=== PATIENT | male | born 1975 | race Caucasian/White ===

== ENCOUNTER 2016-12-28 19:30 | Emergency (ER) | payer OTHER ==
[~2016-12-28] VITALS: Ht 172.7 cm; Wt 71.2 kg
[~2016-12-28 19:30] MED LIST: ADALAT CC90 MG PO; ALPRAZOLAM0.25 MG PO; AMBIEN10 M1 GT; ANTACID325 MG PO; ASPIR-MOX 325325 MG PO; BACTRIM,SEPT1 TABLET PO; BUPROPION HCL75 MG PO; BUSPAR5 MG PO; CATAPRES0.3 MG PO; CELEXA40 MG PO; CEPHALEXIN500 MG PO; CLEOCIN300 MG PO; CLINDAMYCIN HC300 MG PO; CLONAZEPAM1 MG PO; CONCERTA36 MG PO; DELTASONE20 MG PO; FERROUS SULFAT324 M1 PO; FLOMAX0.4 M1 PO; KEFLEX500 MG PO; KLONOPIN1 MG PO; LASIX20 MG GT; METHADONE H5 MG/5 ML PO; METHADONE10 MG PO; MOTRIN600 MG PO; MYFORTIC180 MG PO; NICOTINE PATCH1 EAC1 TD; NOHOMEMEDS; NORCO 5/3251 TABLET PO; NORVASC5 MG PO; OXYCODONE HCL5 MG PO; PLAVIX75 MG PO; PROGRAF1 MG PO; PROTONIX40 M1 PO; PROTONIX40 MG PO; REGLAN10 M1 PO; THERAGRAN1 TABLET PO; TRANDATE300 MG PO; VALCYTE450 MG PO; WELLBUTRIN75 MG PO; XARELTO15 MG PO; XARELTO20 MG PO
[2016-12-28] MEDS ORDERED: NARCAN4 MG NS (21:42)
[2016-12-28 21:58] VITALS: BP 120/88
== END 2016-12-28 22:00 | disposition left against medical advice (07) ==
LOC: EME → EDBD 19:30 → EME 22:00
DX: T40.1X1A Poisoning by heroin, accidental (unintentional), initial encounter (principal); F11.10 Opioid abuse, uncomplicated; F17.200 Nicotine dependence, unspecified, uncomplicated
CPT/HCPCS: 71010; 99281; 99284

== ENCOUNTER 2017-06-19 17:14 | Emergency (ER) | payer OTHER ==
[~2017-06-19] VITALS: Ht 172.7 cm; Wt 67.7 kg
[~2017-06-19 17:14] MED LIST changes: +NARCAN4 MG NS
[2017-06-19] MEDS ORDERED: TAMIFLU75 MG PO (18:48)
[2017-06-19] MEDS ORDERED: LIBRIUM25 MG PO ×2 (18:48→18:49)
[2017-06-19 19:18] VITALS: BP 105/79
== END 2017-06-19 19:19 | disposition home or self-care (01) ==
LOC: EME 17:14
DX: J02.9 Acute pharyngitis, unspecified (principal); F10.10 Alcohol abuse, uncomplicated; F32.9 Major depressive disorder, single episode, unspecified; F41.9 Anxiety disorder, unspecified; F17.210 Nicotine dependence, cigarettes, uncomplicated; F19.11 Other psychoactive substance abuse, in remission
CPT/HCPCS: 99281; 99283

== ENCOUNTER 2017-06-21 19:00 | Inpatient (IN) | payer OTHER ==
[~2017-06-21] VITALS: Ht 177.8 cm; Wt 65.1 kg
[~2017-06-21 19:00] MED LIST changes: +LIBRIUM25 MG PO; +TAMIFLU75 MG PO
[2017-06-21 19:15] LABS: BASE EXCESS -6.1 mEq/L (-3 to +3); BICARBONATE 17.3 mEq/L (22-26); CARBOXY HGB 4.4 % (0-5); COMMENTS - BLOOD GASES C+; DEVICE VENT; FI02 100 %; MECHANICAL RATE 16 resp/min; METHEMOGLOBIN 1.1 % (0-1.5); MODE A/C; PCO2 28 mm Hg (35-45); PEEP 5 CM/H20; PO2 544 mm Hg (80-100); SITE RR; TIDAL VOLUME 500 ML; TOTAL RESP RATE 27 resp/min
[2017-06-21 19:25] LABS: CREATININE 0.9 mg/dL (0.6-1.3); POTASSIUM 3.6 mEq/L (3.7-5.4)
[2017-06-21 19:26] LABS: EOSINOPHIL (%) 1.6 % (0-5); EOSINOPHIL COUNT 0.1 K/uL (0-0.3); HEMATOCRIT 38.6 % (38.0-50.0); IMMATURE GRANULOCYTE (%) 2.6 % (0.0-0.7); IMMATURE GRANULOCYTE COUNT 0.2 K/uL; INSTRUMENT ABS NEUTROPHIL CT 3.2 K/uL; LYMPHOCYTE COUNT 2.2 K/uL (1.0-2.8); MCH 32.8 PG (29.0-34.0); MCHC 34.7 G/DL (30.0-36.0); MCV 94.4 FL (86-99); MEAN PLAT.VOLUME 11.7 uM^3 (9.0-12.4); MONOCYTE (%) 7.5 % (3-12); MONOCYTE COUNT 0.5 K/uL (0-0.8); NEUTROPHIL (%) 51.5 % (45-76); NEUTROPHIL COUNT 3.2 K/uL (1.8-6.4); PLATELET COUNT 134 K/uL (156-360); RBC DIS.WIDTH-CV 13.8 % (11.8-14.6); RBC DIS.WIDTH-SD 48.1 % (39-53); RED BLOOD COUNT 4.09 M/uL (4.00-5.50); WHITE BLOOD COUNT 6.2 K/uL (4.1-10.2)
[2017-06-21 19:32] LABS: PROTHROMBIN TIME 11.3 SEC (10.2-12.9)
[2017-06-21 19:35] LABS: PTT 26.6 SEC (25-37)
[2017-06-21 19:38] LABS: CHLORIDE 106 mEq/L (99-109); POTASSIUM 3.5 mEq/L (3.7-5.4); SODIUM 140 mEq/L (136-147)
[2017-06-21 19:40] LABS: GLUCOSE 190 mg/dL (70-99)
[2017-06-21 19:41] LABS: ANION GAP 18 MEQ/L (2-14)
[2017-06-21 19:42] LABS: ADD MIUA? YES; BILIRUBIN NEGATIVE; BLOOD SMALL; COLOR STRAW ((YELLOW)); GLUCOSE (STRIP) 150; KETONES NEGATIVE; LEUKOCYTES NEGATIVE; NITRITE NEGATIVE; PROTEIN (STRIP) 100; SPECIFIC GRAVITY 1.005 (1.000-1.030); UROBILINOGEN 0.2 MG/DL (0.2-1.0)
[2017-06-21 19:42] LABS: TOTAL BILIRUBIN 0.5 mg/dL (0.0-1.0)
[2017-06-21 19:43] LABS: SERUM ETHYL ALCOHOL 130 mg/dL
[2017-06-21 19:44] LABS: GFR ESTIMATE (CALCULATED) > 59 mL/min/ (58.99-99999)
[2017-06-21 19:45] LABS: ALKALINE PHOSPHATASE 134 IU/L (3-129)
[2017-06-21 19:46] LABS: UREA NITROGEN (BUN) 11 mg/dL (9-23)
[2017-06-21 19:47] LABS: SALICYLATE < 5.0 MG/DL (15-30)
[2017-06-21 19:48] LABS: BACTERIA NONE SEEN /HPF; EPITHELIAL CELLS NONE SEEN /HPF; GRANULAR CASTS 0-5 /LPF; MUCUS TRACE /LPF; RED BLOOD CELLS 0-5 /HPF (0-5); UCUL ADDED? NO; WHITE BLOOD CELLS 0-5 /HPF (0-5)
[2017-06-21 19:49] LABS: LIPASE 85 U/L (1.0-51.0)
[2017-06-21 19:51] LABS: TROP-I INTERPRETATION NEGATIVE; TROPONIN-I < 0.01 ng/mL (0.0-0.30)
[2017-06-21 22:45] VITALS: BP 180/120
[2017-06-21 22:55] VITALS: BP 190/113
[2017-06-21 23:00] VITALS: BP 184/116
[2017-06-21 23:09] LABS: ADD MEDTOX COMMENT Y; AMPHETAMINE NEGATIVE (500 ng/mL); BARBITURATES NEGATIVE (200 ng/mL); BENZODIAZEPINES PRESUMPTIVE POSITIVE (150 ng/mL); COCAINE NEGATIVE (150 ng/mL); INTERNAL CONTROLS VALID? YES; METHADONE NEGATIVE (200 ng/mL); METHAMPHETAMINE NEGATIVE (500 ng/mL); OPIATES (MORPHINE) PRESUMPTIVE POSITIVE (100 ng/mL); OXYCODONE NEGATIVE (100 ng/mL); PHENCYCLIDINE NEGATIVE (25 ng/mL); PROPOXYPHENE NEGATIVE (300 ng/mL); THC CANNABINOIDS NEGATIVE (50 ng/mL); TRICYCLIC ANTIDEPRESSANTS NEGATIVE (300 ng/mL)
[2017-06-21 23:17] LABS: BICARBONATE 18.6 mEq/L (22-26); CARBOXY HGB 2.5 % (0-5); METHEMOGLOBIN 1.5 % (0-1.5); PCO2 37 mm Hg (35-45); PO2 156 mm Hg (80-100); SITE LR; pH 7.31 (7.35-7.45)
[2017-06-21 23:19] LABS: DEVICE 980; FI02 50 %; MECHANICAL RATE 16 resp/min; MODE AC; PEEP 5 CM/H20; TIDAL VOLUME 500 ML; TOTAL RESP RATE 16 resp/min
[2017-06-22] VITALS (26 sets, daily range): BP systolic 0–206; BP diastolic 0–122
[2017-06-22 00:16] LABS: BENZODIAZEPINES, URINE SCREEN POSITIVE (200 ng/mL)
[2017-06-22 00:29] LABS: METH RESISTANT S AUREUS PCR NEGATIVE (NEGATIVE)
[2017-06-22 00:30] LABS: PROBE CHECK PASS; SPECIMEN PROCESSING CONTROL PASS
[2017-06-22 00:39] LABS: POINT-OF-CARE METER ID UU14314082
[2017-06-22 01:27] LABS: EOSINOPHIL (%) 0.1 % (0-5); HEMATOCRIT 42.6 % (38.0-50.0); IMMATURE GRANULOCYTE (%) 0.5 % (0.0-0.7); INSTRUMENT ABS NEUTROPHIL CT 6.6 K/uL; LYMPHOCYTE COUNT 0.5 K/uL (1.0-2.8); MEAN PLAT.VOLUME 11.7 uM^3 (9.0-12.4); MONOCYTE (%) 5.7 % (3-12); MONOCYTE COUNT 0.4 K/uL (0-0.8); NEUTROPHIL (%) 87.1 % (45-76); NEUTROPHIL COUNT 6.6 K/uL (1.8-6.4); PLATELET COUNT 122 K/uL (156-360); RBC DIS.WIDTH-CV 13.8 % (11.8-14.6); RBC DIS.WIDTH-SD 47.8 % (39-53); RED BLOOD COUNT 4.53 M/uL (4.00-5.50); WHITE BLOOD COUNT 7.6 K/uL (4.1-10.2)
[2017-06-22 01:39] LABS: PROTHROMBIN TIME 11.5 SEC (10.2-12.9)
[2017-06-22 01:42] LABS: CHLORIDE 110 mEq/L (99-109); POTASSIUM 3.1 mEq/L (3.7-5.4); SODIUM 142 mEq/L (136-147)
[2017-06-22 01:43] LABS: MAGNESIUM 1.3 mg/dL (1.3-2.7)
[2017-06-22 01:44] LABS: GLUCOSE 172 mg/dL (70-99)
[2017-06-22 01:46] LABS: ANION GAP 16 MEQ/L (2-14)
[2017-06-22 01:48] LABS: GFR ESTIMATE (CALCULATED) > 59 mL/min/ (58.99-99999); TROP-I INTERPRETATION NEGATIVE; TROPONIN-I 0.02 ng/mL (0.0-0.30)
[2017-06-22 01:49] LABS: UREA NITROGEN (BUN) 9 mg/dL (9-23)
[2017-06-22 04:59] LABS: POINT-OF-CARE METER ID UU14174217
[2017-06-22 05:27] LABS: EOSINOPHIL (%) 0 % (0-5); HEMATOCRIT 43.3 % (38.0-50.0); IMMATURE GRANULOCYTE (%) 0.1 % (0.0-0.7); INSTRUMENT ABS NEUTROPHIL CT 7.3 K/uL; LYMPHOCYTE COUNT 0.4 K/uL (1.0-2.8); MCH 31.7 PG (29.0-34.0); MCHC 33.9 G/DL (30.0-36.0); MCV 93.5 FL (86-99); MEAN PLAT.VOLUME 11.6 uM^3 (9.0-12.4); MONOCYTE (%) 5.1 % (3-12); MONOCYTE COUNT 0.4 K/uL (0-0.8); NEUTROPHIL (%) 89.8 % (45-76); NEUTROPHIL COUNT 7.3 K/uL (1.8-6.4); PLATELET COUNT 130 K/uL (156-360); RBC DIS.WIDTH-CV 13.9 % (11.8-14.6); RBC DIS.WIDTH-SD 47.8 % (39-53); RED BLOOD COUNT 4.63 M/uL (4.00-5.50); WHITE BLOOD COUNT 8.2 K/uL (4.1-10.2)
[2017-06-22 05:38] LABS: PROTHROMBIN TIME 11.3 SEC (10.2-12.9)
[2017-06-22 05:50] LABS: TROP-I INTERPRETATION NEGATIVE; TROPONIN-I < 0.01 ng/mL (0.0-0.30)
[2017-06-22 06:07] LABS: ANION GAP 13 MEQ/L (2-14); CHLORIDE 106 MEQ/L (99-109); GFR ESTIMATE (CALCULATED) > 59 mL/min/ (58.99-99999); GLUCOSE 152 mg/dL (70-99); MAGNESIUM 1.4 mg/dl (1.3-2.7); POTASSIUM 3.2 MEQ/L (3.7-5.4); SAMPLE HEMOLYSIS CHECK 0; SAMPLE ICTERIC CHECK 0; SAMPLE LIPEMIA CHECK 0; SODIUM 140 MEQ/L (136-147); UREA NITROGEN (BUN) 9 mg/dL (9-23)
[2017-06-22 07:54] LABS: POINT-OF-CARE METER ID UU13113747
[2017-06-22 09:37] LABS: BASE EXCESS -2.9 mEq/L (-3 to +3); BICARBONATE 22.6 mEq/L (22-26); CARBOXY HGB 2.1 % (0-5); COMMENTS - BLOOD GASES C+; METHEMOGLOBIN 1.2 % (0-1.5); PCO2 41 mm Hg (35-45); PO2 134 mm Hg (80-100); SITE A LINE; pH 7.35 (7.35-7.45)
[2017-06-22 09:38] LABS: DEVICE VENTILATOR; FI02 0.35 %; MECHANICAL RATE 16 resp/min; MODE AC; PEEP 5 CM/H20; TIDAL VOLUME 500 ML; TOTAL RESP RATE 21 resp/min
[2017-06-22 12:35] LABS: EOSINOPHIL (%) 0 % (0-5); HEMATOCRIT 40.5 % (38.0-50.0); IMMATURE GRANULOCYTE (%) 0.8 % (0.0-0.7); IMMATURE GRANULOCYTE COUNT 0.1 K/uL; INSTRUMENT ABS NEUTROPHIL CT 7.6 K/uL; LYMPHOCYTE COUNT 0.4 K/uL (1.0-2.8); MCH 32.3 PG (29.0-34.0); MCHC 34.3 G/DL (30.0-36.0); MCV 94.2 FL (86-99); MEAN PLAT.VOLUME 12.1 uM^3 (9.0-12.4); MONOCYTE (%) 4.3 % (3-12); MONOCYTE COUNT 0.4 K/uL (0-0.8); NEUTROPHIL (%) 89.9 % (45-76); NEUTROPHIL COUNT 7.6 K/uL (1.8-6.4); PLATELET COUNT 116 K/uL (156-360); WHITE BLOOD COUNT 8.4 K/uL (4.1-10.2)
[2017-06-22 12:40] LABS: PROTHROMBIN TIME 11.4 SEC (10.2-12.9)
[2017-06-22 13:01] LABS: ANION GAP 10 MEQ/L (2-14); CHLORIDE 107 MEQ/L (99-109); POTASSIUM 3.1 MEQ/L (3.7-5.4); SAMPLE HEMOLYSIS CHECK 0; SAMPLE ICTERIC CHECK 0; SAMPLE LIPEMIA CHECK 0; SODIUM 139 MEQ/L (136-147)
[2017-06-22 13:06] LABS: GFR ESTIMATE (CALCULATED) > 59 mL/min/ (58.99-99999); UREA NITROGEN (BUN) 9 mg/dL (9-23)
[2017-06-22 13:10] LABS: TROP-I INTERPRETATION NEGATIVE; TROPONIN-I < 0.01 ng/mL (0.0-0.30)
[2017-06-22 13:11] LABS: GLUCOSE 113 mg/dL (70-99)
[2017-06-22 16:01] LABS: BASE EXCESS -3.5 mEq/L (-3 to +3); BICARBONATE 22.1 mEq/L (22-26); METHEMOGLOBIN 1.4 % (0-1.5); PCO2 41 mm Hg (35-45); pH 7.34 (7.35-7.45)
[2017-06-22 16:02] LABS: COMMENTS - BLOOD GASES C+; DEVICE VENTILATOR; FI02 35 %; MECHANICAL RATE 16 resp/min; MODE AC; PEEP 5 CM/H20; PO2 166 mm Hg (80-100); SITE A LINE; TIDAL VOLUME 500 ML; TOTAL RESP RATE 16 resp/min
[2017-06-22 17:57] LABS: EOSINOPHIL (%) 0.1 % (0-5); HEMATOCRIT 38.8 % (38.0-50.0); IMMATURE GRANULOCYTE (%) 0.5 % (0.0-0.7); INSTRUMENT ABS NEUTROPHIL CT 7.7 K/uL; LYMPHOCYTE COUNT 0.5 K/uL (1.0-2.8); MCH 31.6 PG (29.0-34.0); MCHC 33.8 G/DL (30.0-36.0); MCV 93.5 FL (86-99); MEAN PLAT.VOLUME 11.6 uM^3 (9.0-12.4); MONOCYTE (%) 4.3 % (3-12); MONOCYTE COUNT 0.4 K/uL (0-0.8); NEUTROPHIL (%) 89.4 % (45-76); NEUTROPHIL COUNT 7.7 K/uL (1.8-6.4); PLATELET COUNT 140 K/uL (156-360); RBC DIS.WIDTH-SD 48.2 % (39-53); RED BLOOD COUNT 4.15 M/uL (4.00-5.50); WHITE BLOOD COUNT 8.6 K/uL (4.1-10.2)
[2017-06-22 18:03] LABS: PROTHROMBIN TIME 11.7 SEC (10.2-12.9)
[2017-06-22 18:18] LABS: TROP-I INTERPRETATION NEGATIVE; TROPONIN-I < 0.01 ng/mL (0.0-0.30)
[2017-06-22 18:34] LABS: POINT-OF-CARE METER ID UU13113803
[2017-06-22 19:23] LABS: ALKALINE PHOSPHATASE 97 IU/L (3-129); ANION GAP 10 MEQ/L (2-14); CHLORIDE 109 MEQ/L (99-109); DIRECT BILIRUBIN 0.2 mg/dL (0.0-0.3); GFR ESTIMATE (CALCULATED) > 59 mL/min/ (58.99-99999); GLUCOSE 107 mg/dL (70-99); POTASSIUM 3.3 MEQ/L (3.7-5.4); SAMPLE HEMOLYSIS CHECK 0; SAMPLE ICTERIC CHECK 0; SAMPLE LIPEMIA CHECK 0; SODIUM 140 MEQ/L (136-147); TOTAL BILIRUBIN 0.7 MG/DL (0.0-1.0); UREA NITROGEN (BUN) 7 mg/dL (9-23)
[2017-06-22 19:32] LABS: MAGNESIUM 1.7 mg/dl (1.3-2.7)
[2017-06-22 21:56] LABS: BASE EXCESS -3.3 mEq/L (-3 to +3); BICARBONATE 21.3 mEq/L (22-26); METHEMOGLOBIN 2.2 % (0-1.5); PCO2 36 mm Hg (35-45); PO2 148 mm Hg (80-100); SITE A-LINE; pH 7.38 (7.35-7.45)
[2017-06-22 21:57] LABS: COMMENTS - BLOOD GASES C+; DEVICE 980; FI02 35 %; MECHANICAL RATE 16 resp/min; MODE AC; PEEP 5 CM/H20; TIDAL VOLUME 500 ML; TOTAL RESP RATE 18 resp/min
[2017-06-23] VITALS (19 sets, daily range): BP systolic 97–129; BP diastolic 61–83
[2017-06-23 00:32] LABS: EOSINOPHIL (%) 0.1 % (0-5); HEMATOCRIT 38.3 % (38.0-50.0); IMMATURE GRANULOCYTE (%) 0.3 % (0.0-0.7); LYMPHOCYTE COUNT 0.4 K/uL (1.0-2.8); MCH 32.4 PG (29.0-34.0); MCHC 34.5 G/DL (30.0-36.0); MCV 93.9 FL (86-99); MEAN PLAT.VOLUME 12.2 uM^3 (9.0-12.4); MONOCYTE (%) 4.1 % (3-12); MONOCYTE COUNT 0.4 K/uL (0-0.8); NEUTROPHIL (%) 91.6 % (45-76); PLATELET COUNT 109 K/uL (156-360); RBC DIS.WIDTH-SD 47.6 % (39-53); RED BLOOD COUNT 4.08 M/uL (4.00-5.50); WHITE BLOOD COUNT 9.9 K/uL (4.1-10.2)
[2017-06-23 00:32] LABS: POINT-OF-CARE METER ID UU13113803
[2017-06-23 00:38] LABS: PROTHROMBIN TIME 11.8 SEC (10.2-12.9)
[2017-06-23 00:50] LABS: CHLORIDE 109 mEq/L (99-109); SODIUM 138 mEq/L (136-147)
[2017-06-23 00:52] LABS: GLUCOSE 119 mg/dL (70-99)
[2017-06-23 00:53] LABS: ANION GAP 11 MEQ/L (2-14)
[2017-06-23 00:56] LABS: GFR ESTIMATE (CALCULATED) > 59 mL/min/ (58.99-99999)
[2017-06-23 00:57] LABS: UREA NITROGEN (BUN) 6 mg/dL (9-23)
[2017-06-23 00:59] LABS: TROP-I INTERPRETATION NEGATIVE; TROPONIN-I < 0.01 ng/mL (0.0-0.30)
[2017-06-23 01:13] LABS: MAGNESIUM 1.6 mg/dL (1.3-2.7)
[2017-06-23 04:18] LABS: BASE EXCESS -2.4 mEq/L (-3 to +3); BICARBONATE 21.6 mEq/L (22-26); CARBOXY HGB 1.9 % (0-5); METHEMOGLOBIN 1.6 % (0-1.5); PCO2 34 mm Hg (35-45); PO2 139 mm Hg (80-100); pH 7.41 (7.35-7.45)
[2017-06-23 04:19] LABS: COMMENTS - BLOOD GASES C+; DEVICE 980; FI02 30 %; MECHANICAL RATE 16 resp/min; MODE AC; PEEP 5 CM/H20; SITE A-LINE; TIDAL VOLUME 500 ML; TOTAL RESP RATE 26 resp/min
[2017-06-23 04:29] LABS: POINT-OF-CARE METER ID UU13113803
[2017-06-23 04:42] LABS: EOSINOPHIL (%) 0.2 % (0-5); HEMATOCRIT 37.1 % (38.0-50.0); IMMATURE GRANULOCYTE (%) 0.5 % (0.0-0.7); IMMATURE GRANULOCYTE COUNT 0.1 K/uL; INSTRUMENT ABS NEUTROPHIL CT 9.4 K/uL; LYMPHOCYTE COUNT 0.4 K/uL (1.0-2.8); MCH 32.2 PG (29.0-34.0); MCHC 34.5 G/DL (30.0-36.0); MCV 93.2 FL (86-99); MEAN PLAT.VOLUME 12.4 uM^3 (9.0-12.4); MONOCYTE (%) 4.8 % (3-12); MONOCYTE COUNT 0.5 K/uL (0-0.8); NEUTROPHIL (%) 90.3 % (45-76); NEUTROPHIL COUNT 9.4 K/uL (1.8-6.4); PLATELET COUNT 115 K/uL (156-360); RBC DIS.WIDTH-CV 13.9 % (11.8-14.6); RBC DIS.WIDTH-SD 48.2 % (39-53); RED BLOOD COUNT 3.98 M/uL (4.00-5.50); WHITE BLOOD COUNT 10.4 K/uL (4.1-10.2)
[2017-06-23 04:52] LABS: CHLORIDE 109 mEq/L (99-109); POTASSIUM 3.5 mEq/L (3.7-5.4); SODIUM 138 mEq/L (136-147)
[2017-06-23 04:54] LABS: CHLORIDE 110 mEq/L (99-109); POTASSIUM 3.5 mEq/L (3.7-5.4); PROTHROMBIN TIME 11.6 SEC (10.2-12.9); SODIUM 138 mEq/L (136-147)
[2017-06-23 04:55] LABS: GLUCOSE 104 mg/dL (70-99); MAGNESIUM 1.5 mg/dL (1.3-2.7)
[2017-06-23 04:56] LABS: ANION GAP 10 MEQ/L (2-14); GLUCOSE 103 mg/dL (70-99)
[2017-06-23 04:57] LABS: TOTAL BILIRUBIN 0.6 mg/dL (0.0-1.0)
[2017-06-23 04:58] LABS: ANION GAP 10 MEQ/L (2-14); GFR ESTIMATE (CALCULATED) > 59 mL/min/ (58.99-99999)
[2017-06-23 04:59] LABS: UREA NITROGEN (BUN) 6 mg/dL (9-23)
[2017-06-23 05:00] LABS: GFR ESTIMATE (CALCULATED) > 59 mL/min/ (58.99-99999)
[2017-06-23 05:01] LABS: TROP-I INTERPRETATION NEGATIVE; TROPONIN-I < 0.01 ng/mL (0.0-0.30); UREA NITROGEN (BUN) 6 mg/dL (9-23)
[2017-06-23 05:09] LABS: ALKALINE PHOSPHATASE 92 IU/L (3-129)
[2017-06-23 10:09] LABS: BASE EXCESS -3.1 mEq/L (-3 to +3); BICARBONATE 20.9 mEq/L (22-26); CARBOXY HGB 1.6 % (0-5); DEVICE VENT; FI02 30 %; MECHANICAL RATE 16 resp/min; METHEMOGLOBIN 1.8 % (0-1.5); MODE AC; PCO2 33 mm Hg (35-45); PO2 121 mm Hg (80-100); SITE ALINE; TOTAL RESP RATE 26 resp/min; pH 7.41 (7.35-7.45)
[2017-06-23 10:10] LABS: PEEP 5 CM/H20; TIDAL VOLUME 500 ML
[2017-06-23 12:21] LABS: EOSINOPHIL (%) 0.1 % (0-5); HEMATOCRIT 33.1 % (38.0-50.0); IMMATURE GRANULOCYTE (%) 0.5 % (0.0-0.7); INSTRUMENT ABS NEUTROPHIL CT 7.5 K/uL; LYMPHOCYTE COUNT 0.5 K/uL (1.0-2.8); MCH 33.1 PG (29.0-34.0); MCHC 34.7 G/DL (30.0-36.0); MCV 95.4 FL (86-99); MEAN PLAT.VOLUME 12.2 uM^3 (9.0-12.4); MONOCYTE (%) 4.4 % (3-12); MONOCYTE COUNT 0.4 K/uL (0-0.8); NEUTROPHIL (%) 88.8 % (45-76); NEUTROPHIL COUNT 7.5 K/uL (1.8-6.4); PLATELET COUNT 108 K/uL (156-360); RBC DIS.WIDTH-CV 14.5 % (11.8-14.6); RBC DIS.WIDTH-SD 50.6 % (39-53); RED BLOOD COUNT 3.47 M/uL (4.00-5.50); WHITE BLOOD COUNT 8.5 K/uL (4.1-10.2)
[2017-06-23 12:28] LABS: INTER. NORMALIZED RATIO 1.1; PROTHROMBIN TIME 12.2 SEC (10.2-12.9)
[2017-06-23 12:41] LABS: TROP-I INTERPRETATION NEGATIVE; TROPONIN-I < 0.01 ng/mL (0.0-0.30)
[2017-06-23 13:02] LABS: ANION GAP 6 MEQ/L (2-14); CHLORIDE 112 MEQ/L (99-109); GFR ESTIMATE (CALCULATED) > 59 mL/min/ (58.99-99999); GLUCOSE 99 mg/dL (70-99); POTASSIUM 3.7 MEQ/L (3.7-5.4); SAMPLE HEMOLYSIS CHECK 0; SAMPLE ICTERIC CHECK 0; SAMPLE LIPEMIA CHECK 0; SODIUM 140 MEQ/L (136-147); UREA NITROGEN (BUN) 6 mg/dL (9-23)
[2017-06-23 13:38] LABS: MAGNESIUM 2.8 mg/dl (1.3-2.7)
[2017-06-23 17:26] LABS: POINT-OF-CARE METER ID UU14162636
[2017-06-23 18:15] LABS: EOSINOPHIL (%) 0 % (0-5); HEMATOCRIT 32.7 % (38.0-50.0); IMMATURE GRANULOCYTE (%) 0.5 % (0.0-0.7); INSTRUMENT ABS NEUTROPHIL CT 7.1 K/uL; LYMPHOCYTE COUNT 0.5 K/uL (1.0-2.8); MCH 32.7 PG (29.0-34.0); MCHC 34.3 G/DL (30.0-36.0); MCV 95.6 FL (86-99); MEAN PLAT.VOLUME 12.4 uM^3 (9.0-12.4); MONOCYTE (%) 4.2 % (3-12); MONOCYTE COUNT 0.3 K/uL (0-0.8); NEUTROPHIL (%) 89.4 % (45-76); NEUTROPHIL COUNT 7.1 K/uL (1.8-6.4); PLATELET COUNT 120 K/uL (156-360); RBC DIS.WIDTH-CV 14.6 % (11.8-14.6); RBC DIS.WIDTH-SD 50.8 % (39-53); RED BLOOD COUNT 3.42 M/uL (4.00-5.50); WHITE BLOOD COUNT 7.9 K/uL (4.1-10.2)
[2017-06-23 18:22] LABS: INTER. NORMALIZED RATIO 1.1; PROTHROMBIN TIME 12.6 SEC (10.2-12.9)
[2017-06-23 18:34] LABS: ANION GAP 8 MEQ/L (2-14); CHLORIDE 112 MEQ/L (99-109); GFR ESTIMATE (CALCULATED) > 59 mL/min/ (58.99-99999); GLUCOSE 119 mg/dL (70-99); POTASSIUM 3.7 MEQ/L (3.7-5.4); SAMPLE HEMOLYSIS CHECK 0; SAMPLE ICTERIC CHECK 0; SAMPLE LIPEMIA CHECK 0; SODIUM 139 MEQ/L (136-147); UREA NITROGEN (BUN) 7 mg/dL (9-23)
[2017-06-23 18:36] LABS: TROP-I INTERPRETATION NEGATIVE; TROPONIN-I < 0.01 ng/mL (0.0-0.30)
[2017-06-23 18:43] LABS: MAGNESIUM 1.9 mg/dl (1.3-2.7)
[2017-06-24] VITALS (7 sets, daily range): BP systolic 92–131; BP diastolic 52–108
[2017-06-24 00:34] LABS: POINT-OF-CARE METER ID UU14162636
[2017-06-24 00:35] LABS: EOSINOPHIL (%) 0 % (0-5); HEMATOCRIT 33.6 % (38.0-50.0); IMMATURE GRANULOCYTE (%) 0.8 % (0.0-0.7); IMMATURE GRANULOCYTE COUNT 0.1 K/uL; INSTRUMENT ABS NEUTROPHIL CT 6.6 K/uL; LYMPHOCYTE COUNT 0.5 K/uL (1.0-2.8); MCH 32.5 PG (29.0-34.0); MCHC 34.5 G/DL (30.0-36.0); MCV 94.1 FL (86-99); MEAN PLAT.VOLUME 12.3 uM^3 (9.0-12.4); MONOCYTE (%) 6.4 % (3-12); MONOCYTE COUNT 0.5 K/uL (0-0.8); NEUTROPHIL (%) 85.8 % (45-76); NEUTROPHIL COUNT 6.6 K/uL (1.8-6.4); PLATELET COUNT 152 K/uL (156-360); RBC DIS.WIDTH-CV 14.4 % (11.8-14.6); RBC DIS.WIDTH-SD 50.2 % (39-53); RED BLOOD COUNT 3.57 M/uL (4.00-5.50); WHITE BLOOD COUNT 7.7 K/uL (4.1-10.2)
[2017-06-24 00:44] LABS: INTER. NORMALIZED RATIO 1.2; PROTHROMBIN TIME 13.2 SEC (10.2-12.9)
[2017-06-24 00:49] LABS: CHLORIDE 111 mEq/L (99-109); POTASSIUM 4.1 mEq/L (3.7-5.4); SODIUM 139 mEq/L (136-147)
[2017-06-24 00:51] LABS: GLUCOSE 106 mg/dL (70-99)
[2017-06-24 00:53] LABS: ANION GAP 10 MEQ/L (2-14)
[2017-06-24 00:55] LABS: GFR ESTIMATE (CALCULATED) > 59 mL/min/ (58.99-99999); MAGNESIUM 2.1 mg/dL (1.3-2.7)
[2017-06-24 00:56] LABS: UREA NITROGEN (BUN) 7 mg/dL (9-23)
[2017-06-24 01:00] LABS: TROP-I INTERPRETATION NEGATIVE; TROPONIN-I < 0.01 ng/mL (0.0-0.30)
[2017-06-24 05:14] LABS: EOSINOPHIL (%) 0 % (0-5); HEMATOCRIT 34.6 % (38.0-50.0); IMMATURE GRANULOCYTE (%) 2.2 % (0.0-0.7); IMMATURE GRANULOCYTE COUNT 0.2 K/uL; INSTRUMENT ABS NEUTROPHIL CT 8.8 K/uL; LYMPHOCYTE COUNT 0.4 K/uL (1.0-2.8); MCH 32.7 PG (29.0-34.0); MCHC 35.3 G/DL (30.0-36.0); MCV 92.8 FL (86-99); MEAN PLAT.VOLUME 12.6 uM^3 (9.0-12.4); MONOCYTE (%) 6.8 % (3-12); MONOCYTE COUNT 0.7 K/uL (0-0.8); NEUTROPHIL (%) 87.3 % (45-76); NEUTROPHIL COUNT 8.8 K/uL (1.8-6.4); PLATELET COUNT 163 K/uL (156-360); RBC DIS.WIDTH-SD 47.7 % (39-53); RED BLOOD COUNT 3.73 M/uL (4.00-5.50)
[2017-06-24 05:28] LABS: INTER. NORMALIZED RATIO 1.1; PROTHROMBIN TIME 12.3 SEC (10.2-12.9)
[2017-06-24 05:30] LABS: TROP-I INTERPRETATION NEGATIVE; TROPONIN-I < 0.01 ng/mL (0.0-0.30)
[2017-06-24 05:32] LABS: CHLORIDE 109 mEq/L (99-109); MAGNESIUM 2.4 mg/dL (1.3-2.7); POTASSIUM 4.2 mEq/L (3.7-5.4); SODIUM 139 mEq/L (136-147)
[2017-06-24 05:34] LABS: GLUCOSE 136 mg/dL (70-99)
[2017-06-24 05:35] LABS: ANION GAP 13 MEQ/L (2-14)
[2017-06-24 05:38] LABS: GFR ESTIMATE (CALCULATED) > 59 mL/min/ (58.99-99999)
[2017-06-24 05:39] LABS: UREA NITROGEN (BUN) 8 mg/dL (9-23)
[2017-06-24 11:39] LABS: POINT-OF-CARE METER ID UU14314082
[2017-06-24 12:25] LABS: EOSINOPHIL (%) 0.1 % (0-5); HEMATOCRIT 29.7 % (38.0-50.0); IMMATURE GRANULOCYTE COUNT 0.1 K/uL; INSTRUMENT ABS NEUTROPHIL CT 5.4 K/uL; LYMPHOCYTE COUNT 0.9 K/uL (1.0-2.8); MCH 32.2 PG (29.0-34.0); MCHC 34.3 G/DL (30.0-36.0); MCV 93.7 FL (86-99); MEAN PLAT.VOLUME 11.2 uM^3 (9.0-12.4); MONOCYTE (%) 9.6 % (3-12); MONOCYTE COUNT 0.7 K/uL (0-0.8); NEUTROPHIL (%) 76.4 % (45-76); NEUTROPHIL COUNT 5.4 K/uL (1.8-6.4); PLATELET COUNT 134 K/uL (156-360); RBC DIS.WIDTH-CV 13.6 % (11.8-14.6); RBC DIS.WIDTH-SD 46.9 % (39-53); RED BLOOD COUNT 3.17 M/uL (4.00-5.50); WHITE BLOOD COUNT 7.1 K/uL (4.1-10.2)
[2017-06-24 12:31] LABS: INTER. NORMALIZED RATIO 1.1; PROTHROMBIN TIME 12.9 SEC (10.2-12.9)
[2017-06-24 12:35] LABS: TROP-I INTERPRETATION NEGATIVE; TROPONIN-I < 0.01 ng/mL (0.0-0.30)
[2017-06-24 12:48] LABS: ANION GAP 6 MEQ/L (2-14); CHLORIDE 113 MEQ/L (99-109); GFR ESTIMATE (CALCULATED) > 59 mL/min/ (58.99-99999); GLUCOSE 103 mg/dL (70-99); MAGNESIUM 1.8 mg/dl (1.3-2.7); POTASSIUM 3.4 MEQ/L (3.7-5.4); SAMPLE HEMOLYSIS CHECK 0; SAMPLE ICTERIC CHECK 0; SAMPLE LIPEMIA CHECK 0; SODIUM 141 MEQ/L (136-147); UREA NITROGEN (BUN) 9 mg/dL (9-23)
[2017-06-24 12:49] LABS: ALKALINE PHOSPHATASE 66 IU/L (3-129)
[2017-06-24 17:36] LABS: POINT-OF-CARE METER ID UU14314082
[2017-06-24 21:12] LABS: POINT-OF-CARE METER ID UU14314082
[2017-06-25 02:00] VITALS: BP 121/84
[2017-06-25 04:00] VITALS: BP 132/94
[2017-06-25 06:21] LABS: EOSINOPHIL (%) 1.1 % (0-5); EOSINOPHIL COUNT 0.1 K/uL (0-0.3); HEMATOCRIT 29.3 % (38.0-50.0); IMMATURE GRANULOCYTE (%) 0.7 % (0.0-0.7); INSTRUMENT ABS NEUTROPHIL CT 3.7 K/uL; MCH 31.8 PG (29.0-34.0); MCHC 33.8 G/DL (30.0-36.0); MCV 94.2 FL (86-99); MEAN PLAT.VOLUME 11.1 uM^3 (9.0-12.4); MONOCYTE (%) 9.8 % (3-12); MONOCYTE COUNT 0.5 K/uL (0-0.8); NEUTROPHIL (%) 69.1 % (45-76); NEUTROPHIL COUNT 3.7 K/uL (1.8-6.4); PLATELET COUNT 152 K/uL (156-360); RBC DIS.WIDTH-CV 14.3 % (11.8-14.6); RBC DIS.WIDTH-SD 49.4 % (39-53); RED BLOOD COUNT 3.11 M/uL (4.00-5.50); WHITE BLOOD COUNT 5.4 K/uL (4.1-10.2)
[2017-06-25 06:36] LABS: ANION GAP 7 MEQ/L (2-14); CHLORIDE 115 MEQ/L (99-109); GFR ESTIMATE (CALCULATED) > 59 mL/min/ (58.99-99999); GLUCOSE 101 mg/dL (70-99); MAGNESIUM 1.8 mg/dl (1.3-2.7); POTASSIUM 3.3 MEQ/L (3.7-5.4); SAMPLE HEMOLYSIS CHECK 0; SAMPLE ICTERIC CHECK 0; SAMPLE LIPEMIA CHECK 0; SODIUM 143 MEQ/L (136-147); UREA NITROGEN (BUN) 10 mg/dL (9-23)
[2017-06-25 06:39] LABS: ALKALINE PHOSPHATASE 62 IU/L (3-129); ANION GAP 8 MEQ/L (2-14); CHLORIDE 114 MEQ/L (99-109); GFR ESTIMATE (CALCULATED) > 59 mL/min/ (58.99-99999); GLUCOSE 100 mg/dL (70-99); POTASSIUM 3.2 MEQ/L (3.7-5.4); SAMPLE HEMOLYSIS CHECK 0; SAMPLE ICTERIC CHECK 0; SAMPLE LIPEMIA CHECK 0; SODIUM 142 MEQ/L (136-147); TOTAL BILIRUBIN 0.4 MG/DL (0.0-1.0); UREA NITROGEN (BUN) 10 mg/dL (9-23)
[2017-06-25 08:00] VITALS: BP 149/102
[2017-06-25 08:28] LABS: POINT-OF-CARE METER ID UU14314082
[2017-06-25 12:00] VITALS: BP 134/88
[2017-06-25 16:00] VITALS: BP 134/88
[2017-06-25 21:29] LABS: POINT-OF-CARE METER ID UU14314082
[2017-06-26 05:41] LABS: EOSINOPHIL (%) 0.6 % (0-5); HEMATOCRIT 29.2 % (38.0-50.0); IMMATURE GRANULOCYTE (%) 0.6 % (0.0-0.7); INSTRUMENT ABS NEUTROPHIL CT 3.2 K/uL; LYMPHOCYTE COUNT 0.8 K/uL (1.0-2.8); MCH 32.8 PG (29.0-34.0); MCHC 34.9 G/DL (30.0-36.0); MCV 93.9 FL (86-99); MONOCYTE (%) 13.4 % (3-12); MONOCYTE COUNT 0.6 K/uL (0-0.8); NEUTROPHIL (%) 68.7 % (45-76); NEUTROPHIL COUNT 3.2 K/uL (1.8-6.4); RBC DIS.WIDTH-CV 13.8 % (11.8-14.6); RBC DIS.WIDTH-SD 46.7 % (39-53); RED BLOOD COUNT 3.11 M/uL (4.00-5.50); WHITE BLOOD COUNT 4.7 K/uL (4.1-10.2)
[2017-06-26 05:46] LABS: PLATELET COUNT 223 K/uL (156-360)
[2017-06-26 06:13] LABS: ANION GAP 7 MEQ/L (2-14); CHLORIDE 112 MEQ/L (99-109); GFR ESTIMATE (CALCULATED) > 59 mL/min/ (58.99-99999); GLUCOSE 96 mg/dL (70-99); MAGNESIUM 1.9 mg/dl (1.3-2.7); POTASSIUM 3.7 MEQ/L (3.7-5.4); SAMPLE HEMOLYSIS CHECK 2; SAMPLE ICTERIC CHECK 0; SAMPLE LIPEMIA CHECK 0; SODIUM 141 MEQ/L (136-147); UREA NITROGEN (BUN) 11 mg/dL (9-23)
[2017-06-26 09:02] LABS: POINT-OF-CARE METER ID UU14314083
[2017-06-26 12:00] VITALS: BP 148/100
[2017-06-26 16:00] VITALS: BP 160/100
[2017-06-26 20:00] VITALS: BP 147/100
[2017-06-26 20:49] LABS: POINT-OF-CARE METER ID UU13113803
[2017-06-26 22:00] VITALS: BP 160/103
[2017-06-27] VITALS (8 sets, daily range): BP systolic 148–171; BP diastolic 92–104
[2017-06-27 05:24] LABS: EOSINOPHIL (%) 2.6 % (0-5); EOSINOPHIL COUNT 0.1 K/uL (0-0.3); HEMATOCRIT 28.8 % (38.0-50.0); IMMATURE GRANULOCYTE (%) 1.3 % (0.0-0.7); IMMATURE GRANULOCYTE COUNT 0.1 K/uL; INSTRUMENT ABS NEUTROPHIL CT 2.1 K/uL; MCH 32.5 PG (29.0-34.0); MCHC 34.4 G/DL (30.0-36.0); MCV 94.4 FL (86-99); MEAN PLAT.VOLUME 10.3 uM^3 (9.0-12.4); MONOCYTE (%) 15.8 % (3-12); MONOCYTE COUNT 0.6 K/uL (0-0.8); NEUTROPHIL (%) 53.5 % (45-76); NEUTROPHIL COUNT 2.1 K/uL (1.8-6.4); PLATELET COUNT 242 K/uL (156-360); RBC DIS.WIDTH-CV 13.7 % (11.8-14.6); RBC DIS.WIDTH-SD 46.9 % (39-53); RED BLOOD COUNT 3.05 M/uL (4.00-5.50); WHITE BLOOD COUNT 3.9 K/uL (4.1-10.2)
[2017-06-27 05:57] LABS: ANION GAP 6 MEQ/L (2-14); CHLORIDE 113 MEQ/L (99-109); GFR ESTIMATE (CALCULATED) > 59 mL/min/ (58.99-99999); GLUCOSE 102 mg/dL (70-99); MAGNESIUM 1.9 mg/dl (1.3-2.7); POTASSIUM 3.5 MEQ/L (3.7-5.4); SAMPLE HEMOLYSIS CHECK 0; SAMPLE ICTERIC CHECK 0; SAMPLE LIPEMIA CHECK 0; SODIUM 142 MEQ/L (136-147); UREA NITROGEN (BUN) 13 mg/dL (9-23)
== END 2017-06-28 15:14 | DRG 917 ==
LOC: EME → EDBD 19:00 → EME 19:00 → 4WEST 21:03 → EDOF 21:03 → ENRESERV 21:05 → 4WEST 22:34 → UNDODEPER 22:54 → ENRESERV 06-27 → 4WEST 06-27 20:17 → ENRESERV 06-27 20:17 → 4WEST 06-27 20:55 → 5EAST 06-27 22:27
PROVIDERS: Emergency Medicine; Specialist; Surgery
PROC: 5A1955Z Respiratory Ventilation, Greater than 96 Consecutive Hours (ICD-10-PCS; principal; 2017-06-21)
PROC: 4A133BC Monitoring of Arterial Pressure, Coronary, Percutaneous Approach (ICD-10-PCS; 2017-06-22)
DX: T40.601A Poisoning by unspecified narcotics, accidental (unintentional), initial encounter (principal); J96.01 Acute respiratory failure with hypoxia; G93.1 Anoxic brain damage, not elsewhere classified; F10.229 Alcohol dependence with intoxication, unspecified; Z51.5 Encounter for palliative care; G40.909 Epilepsy, unspecified, not intractable, without status epilepticus; F17.200 Nicotine dependence, unspecified, uncomplicated; E87.6 Hypokalemia; E87.2 Acidosis; F41.9 Anxiety disorder, unspecified; F32.9 Major depressive disorder, single episode, unspecified; B19.20 Unspecified viral hepatitis C without hepatic coma; R40.2430 Glasgow coma scale score 3-8, unspecified time; Z91.19 Patient's noncompliance with other medical treatment and regimen; I16.0 Hypertensive urgency; I10 Essential (primary) hypertension; S70.11XA Contusion of right thigh, initial encounter; Y84.8 Other medical procedures as the cause of abnormal reaction of the patient, or of later complication, without mention of misadventure at the time of the procedure; B95.3 Streptococcus pneumoniae as the cause of diseases classified elsewhere; Z66 Do not resuscitate; Z59.0 Homelessness; E83.42 Hypomagnesemia
CPT/HCPCS: 36600; 70450; 71010; 80047; 80048; 80048 91; 80053; 80076; 81003; 82330; 82803; 82948; 83605; 83690; 83735; 83880; 84075; 84100; 84450; 84460; 84484; 84999; 85025; 85025 91; 85610; 85730; 86803; 87040; 87070; 87077; 87181; 87205; 87502; 87641; 87801; 93005; 94002; 94003; 95819; 99281; 99285; G0480; J0360; J0610; J0696; J1265; J1650; J1815; J1953; J2060; J2250; J2270; J2310; J2543; J2704; J3010; J3370; J3475; J7030; J7040; J7050; S0028

== ENCOUNTER 2017-06-28 15:59 | Inpatient (IN) | payer OTHER ==
[~2017-06-28] VITALS: Ht 177.8 cm; Wt 65.1 kg
== END 2017-06-28 17:48 | DRG 951 ==
LOC: 5EAST 15:59 → ENRESERV 15:59 → 5EAST 16:03
DX: Z51.5 Encounter for palliative care (principal); T40.2X1A Poisoning by other opioids, accidental (unintentional), initial encounter; G93.1 Anoxic brain damage, not elsewhere classified; J96.00 Acute respiratory failure, unspecified whether with hypoxia or hypercapnia; G40.909 Epilepsy, unspecified, not intractable, without status epilepticus; F17.200 Nicotine dependence, unspecified, uncomplicated; Z66 Do not resuscitate; F11.20 Opioid dependence, uncomplicated